=== PATIENT | male | born 1990 | race Caucasian/White ===

== ENCOUNTER 2016-08-28 01:23 | Emergency (ER) | payer SELFPAY ==
[2016-08-28] MEDS ORDERED: Metoprolol Tartrate 5 MG/5 ML VIAL ONE (01:50)
[2016-08-28 02:03] LABS: #Basophils 0.1 thou/uL (0.0-0.2); #Eosinphils 0.4 thou/uL (0.0-0.7); #Lymphocytes 3.2 thou/uL (1.20-3.40); #Monocytes 0.7 thou/uL (0.11-0.59); #Neutrophils 3.8 thou/uL (1.40-6.50); %Basophils 1.8 % (0.0-1.0); %Eosinophils 4.4 % (0.0-10.0); %Lymphocytes 39.6 % (21.0-51.0); %Monocytes 8.1 % (0.0-10.0); Hemoglobin 14.7 g/dL (14.0-18.0); Mean Corpuscular Hemoglobin 31.5 pg (27.0-31.0); Mean Corpuscular Volume 87.6 fl (80.0-94.0); Mean Platelet Volume 7.7 fL (7.4-10.4); Platelet Count 268 thou/uL (130-400); RBC Distribution Width 10.9 % (11.5-14.5); Red Blood Cell (RBC) Count 4.67 mill/uL (4.70-6.10); White Blood Cell (WBC) Count 8.2 thou/uL (4.8-10.8)
[2016-08-28 02:06] LABS: Bilirubin Negative (Negative); Blood, Urine Negative (Negative); Clarity Clear (Clear); Glucose, Urine (Dipstick) Negative (Negative); Leukocyte Negative (Negative); Nitrite Negative (Negative); Protein, Urine (Dipstick) Negative (Neg-Trace)
[2016-08-28] MEDS ORDERED: Nitroglycerin 0.4 MG TAB 1 EACH ONE (02:08)
[2016-08-28 02:13] LABS: ALT (SGPT) 32 U/L (0-55); AST (SGOT) 29 U/L (5-34); Albumin 4.7 g/dL (3.5-5.0); Alkaline Phosphatase 80 U/L (40-150); Anion Gap 16 mmol/L (10-20); BUN (Urea Nitrogen) 11 mg/dL (8.9-20.6); Bilirubin, Total 0.5 mg/dL (0.2-1.2); Calc. Creatinine Clearance 0 mL/min (70-130); Calcium 9.3 mg/dL (7.8-10.44); Carbon Dioxide 25 mmol/L (22-29); Chloride 103 mmol/L (98-107); Estimated GFR-MDRD 86; Globulin 2.7 g/dL (2.4-3.5); Glucose 132 mg/dL (70-105); Potassium 3.2 mmol/L (3.5-5.1); Protein, Total 7.4 g/dL (6.0-8.3); Sodium 141 mmol/L (136-145)
[2016-08-28 02:20] LABS: CKMB 2.3 ng/mL (0-6.6); Troponin I Less than 0.010 ng/mL (< 0.028)
[2016-08-28 02:22] LABS: Amphetamine Detected (NotDetected); Barbiturates Screen Not Detected (NotDetected); Benzodiazepine Screen Not Detected (NotDetected); Cocaine Metabolite Screen Not Detected (NotDetected); Medtox Control Line Valid? VALID (VALID); Methadone Not Detected (NotDetected); Methamphetamine Not Detected (NotDetected); Opiate Screen Not Detected (NotDetected); Oxycodone Screen Not Detected (NotDetected); Phencyclidine (PCP) Not Detected (NotDetected); THC/Cannabinoid Screen Not Detected (NotDetected); Tricyclic Screen Not Detected (NotDetected)
[2016-08-28] MEDS ORDERED: Potassium Chloride 20 MEQ TAB ONE (03:35)
[2016-08-28] MEDS ORDERED: Sodium Chloride 0.9% 1,000 ML BAG ONE (08:48)
--- NOTE | 2016-08-28 08:50 | RAD ---
PORTABLE CHEST 1 VIEW: Date: 08/28/16 Time: 0134 hours HISTORY: Chest pain. FINDINGS: The heart size is normal. The lungs are well expanded without focal areas of consolidation, pneumoth orax, or pleural effusions. IMPRESSION: No radiographic evidence of acute cardiopulmonary process. POS: [facility]
[2016-08-28] MEDS ORDERED: Iopamidol 370 76% 125 ML VIAL FS ONE (11:59)
[2016-08-28] MEDS ORDERED: Sodium Chloride 0.9% 100 ML BAG ONE (11:59)
--- NOTE | 2016-08-28 12:27 | CT ---
PRELIMINARY REPORT/[facility]/EMERGENCY AFTER HOURS PROCEDURE: EXAM: CT Angiography Chest With Intravenous Contrast CLINICAL HISTORY: 26 years old, male; Signs and symptoms; Other: Chest pressure and weakness TECHNIQUE: Axial computed tomographic angiography images of the chest with intravenous contrast using pulmonary embolism protocol. Coronal reformatted images were created and reviewed. CONTRAST: 120 mL of ISOVUE 370 administered intravenously. COMPARISON: No relevant prior studies available. FINDINGS: Pulmonary arteries: No pulmonary embolus is identified. Aorta: No acute findings. No thoracic aortic aneurysm. Lungs: Scattered small peripheral patchy areas of groundglass attenuation bilaterally. No mass or de fined consolidation. Pleural space: No significant effusion. No pneumothorax. Heart: Unremarkable. Bones/joints: No acute fracture. No dislocation. Soft tissues: Unremarkable. Lymph nodes: Unremarkable. No enlarged lymph nodes. IMPRESSION: Scattered patchy areas of peripheral ground glass opacity suggestive of infectious/inflammatory proc ess. Thank you for allowing us to participate in the care of your patient. Dictated and Authenticated by: Benjamin Gan MD 08/28/2016 3:12 AM Central Time ([place] \T\ [place]) FINAL REPORT CT PULMONARY ANGIOGRAM WITH IV CONTRAST AND 3D POSTPROCESSING: Date: 08/28/16 IMPRESSION: I agree with the preliminary report given by Luciana. POS: [facility]
== END 2016-08-28 04:00 | disposition home or self-care (01) ==
LOC: MADERS 01:23
DX: R07.89 Other chest pain (principal); E87.6 Hypokalemia
CPT/HCPCS: 36415; 71010; 71275; 80053; 80306; 81003; 82553; 84484; 85025; 85379; 93005; 96361; 96374; J7050